=== PATIENT | female | born 1960 | race Caucasian/White ===

== ENCOUNTER 2019-01-16 16:38 | Emergency (ER) | payer BC ==
[2019-01-16 18:47] LABS: Appearance,Urine Clear (Clear); Bilirubin,Urine Negative (Negative); Blood,Urine Negative (Negative); Color,Urine Yellow; Glucose,Urine (UA) Negative (Negative); Ketones,Urine 1+ (Negative); Leukocyte Esterase,Urine Negative (Negative); Nitrite,Urine Negative (Negative); Protein,Urine Negative (Negative); Specific Gravity,Urine 1.016 (1.001-1.035); Urobilinogen,Urine <2.0 mg/dL (<2.0)
[2019-01-16 18:55] LABS: ALT 30 U/L (9-52); AST 30 U/L (14-36); Albumin 5.1 g/dL (3.5-5.0); Alkaline Phosphatase 64 U/L (38-126); Anion Gap 12 mmol/L; Blood Urea Nitrogen 15 mg/dL (7-17); Carbon Dioxide 24 mmol/L (22-30); Chloride 104 mmol/L (98-107); Glucose 99 mg/dL (74-99); Lipase 292 U/L (23-300); Magnesium 2.1 mg/dL (1.6-2.3); Potassium 3.6 mmol/L (3.5-5.1); Sodium 140 mmol/L (137-145); Total Bilirubin 1.8 mg/dL (0.2-1.3); Total Protein 8.3 g/dL (6.3-8.2)
--- NOTE | 2019-01-16 19:21 | CT ---
EXAMINATION TYPE: CT angio thor/abd pel aorta DATE OF EXAM: 01/16/2019 COMPARISON: None HISTORY: Lower chest pain, Hx of aneurysm CT DLP: 820.2 mGycm. Automated Exposure Control for Dose Reduction was Utilized. CONTRAST: CT scan of the thorax, abdomen and pelvis is performed with IV Contrast, patient injected with 100 mL of Isovue 370. FINDINGS: There are 3-D post processed images. The lungs are clear of infiltrate. Heart size is normal. There is no pericardial effusion. There is n o mediastinal adenopathy. There are no hilar masses. Liver spleen pancreas gallbladder appear normal. Bile ducts are not dilated. Kidneys appear normal. There is no hydronephrosis. There is no retroperi toneal adenopathy. Thoracic aorta appears normal. There is no evidence of thoracic aortic dissection. Ascending aorta me asures 3.3 cm. There is normal contrast opacification of the pulmonary arteries. Abdominal aorta has normal size. There is patency of the celiac artery and superior mesenteric artery . There is bilateral patency of the renal arteries. There is patency of the iliac and femoral arterie s bilaterally. There is no evidence of hemodynamic stenosis. There is no evidence of aneurysm or diss ection. The thoracic and lumbar spine appear intact. There is a mild L4-5 subluxation. IMPRESSION: Negative CT angiogram of the chest abdomen pelvis. No evidence of pulmonary embolism. No evidence of aortic aneurysm or dissection.
[2019-01-16 19:22] LABS: Basophils # (A) 0.1 k/uL (0-0.2); Basophils % (A) 1 %; Eosinophils # (A) 0.1 k/uL (0-0.7); Eosinophils % (A) 2 %; HCT 42.5 % (34.0-46.0); Lymphocytes # (A) 3.1 k/uL (1.0-4.8); Lymphocytes % (A) 49 %; MCH 30.4 pg (25.0-35.0); Mean Platelet Volume 6.6; Monocytes # (A) 0.4 k/uL (0-1.0); Monocytes % (A) 6 %; Neutrophils # (A) 2.6 k/uL (1.3-7.7); Neutrophils % (A) 41 %; Platelet Count 262 k/uL (150-450); RBC 4.62 m/uL (3.80-5.40); RDW 12.3 % (11.5-15.5); WBC 6.4 k/uL (3.8-10.6)
--- NOTE | 2019-01-16 19:31 | XR ---
EXAMINATION TYPE: XR chest 2V DATE OF EXAM: 01/16/2019 COMPARISON: NONE HISTORY: Epigastric pain TECHNIQUE: Frontal and lateral views of the chest are obtained. FINDINGS: Heart and mediastinum are normal. Lungs are clear. Diaphragm is normal. Bony thorax appear s normal. IMPRESSION: Normal chest. No change.
[2019-01-16] MEDS ORDERED: MAG HYDROX/AL HYDROX/SIMETH 30 ML, HYOSCYAMINE ELIXIR 10 ML, CIMETIDINE HCL 300 MG, LID... PO STA ×4 (20:16)
--- NOTE | 2019-01-16 21:01 | US ---
EXAMINATION TYPE: US abdomen limited DATE OF EXAM: 01/16/2019 COMPARISON: CT CLINICAL HISTORY: RUQ/epigastric pain. Pt states epigastric pain EXAM MEASUREMENTS: Liver Length: 12.9 cm Gallbladder Wall: 0.2 cm CBD: 0.3 cm Right Kidney: 9.6 x 3.7 x 4.8 cm Pancreas: wnl Liver: wnl Gallbladder: wnl Evidence for sonographic Burgess's sign: No CBD: wnl Right Kidney: wnl No abnormality visualized to account for pt's symptoms IMPRESSION: No gallstones or dilated ducts. Negative exam.
--- NOTE | 2019-01-16 21:33 | ED ---
Abdominal Pain HPI - General Chief Complaint: Abdominal Pain Stated Complaint: abdominal pain/swelling Time Seen by Provider: 01/16/19 18:19 Source: patient Mode of arrival: ambulatory Limitations: no limitations - History of Present Illness Initial Comments: 58-year-old female presenting today for chief complaint of epigastric pain 2 weeks. Patient has history of "problem with aorta" monitored with Dr. Marshall. Pt denies history of IA. Patient states that she has had epigastric pain that radiates to her back for the past 2 weeks. She has an appointment scheduled in 2 weeks with gastroenterology. Patient states when the pain persisted the past 2 days increasing severity she presents emergency department for evaluation. She states she feels like she has ingestion, she ascribes the pain is sharp and increases with certain positions. Patient states she does not have chest pain, dyspnea distracted exertion nausea vomiting jaw pain shoulder pain or UE parathesias. She denies fever or diarrhea constipation no abdominal pain melena or hematochezia. Patient denies any vomiting or hematemesis. Remaining review of systems negative upon arrival patient appears well no signs of acute distress. No protective postures vital signs within acceptable limits. - Related Data Previous Rx's Medication Instructions Recorded Famotidine [Pepcid] 20 mg PO DAILY 30 Days #30 tablet 01/16/19 Allergies Allergy/AdvReac Type Severity Reaction Status Date / Time No Known Allergies Allergy Verified 01/16/19 20:13 Review of Systems ROS Statement: Those systems with pertinent positive or pertinent negative responses have been documented in the HPI. ROS Other: All systems not noted in ROS Statement are negative. Past Medical History Past Medical History: Chest Pain / Angina History of Any Multi-Drug Resistant Organisms: None Reported Past Surgical History: Section Past Psychological History: No Psychological Hx Reported Smoking Status: Never smoker Past Alcohol Use History: Occasional Past Drug Use History: None Reported General Exam - General Exam Comments Initial Comments: General: The patient is awake and alert, in no distress, and does not appear acutely ill. Eye: +3 mm pupils are equal, round and reactive to light, extra-ocular movements are intact. No nystagmus. There is normal conjunctiva bilaterally. No signs of icterus. Ears, nose, mouth and throat: There are moist mucous membranes and no oral lesions. Neck: The neck is supple, there is no tenderness or JVD. Cardiovascular: There is a regular rate and rhythm. No murmur, rub or gallop is appreciated. Respiratory: Lungs are clear to auscultation, respirations are non-labored, breath sounds are equal. No wheezes, stridor, rales, or rhonchi. Gastrointestinal: Soft, non-distended, tender abdomen to palpation of the epigastric region, without masses or organomegaly noted. There is no rebound or guarding present. No CVA tenderness. Bowel sounds are unremarkable. Musculoskeletal: Normal ROM, no tenderness. Strength 5/5. Sensation intact. Radial and DP pulses equal bilaterally 2+. Neurological: A&O x 3. CN II-XII intact, There are no obvious motor or sensory deficits. Coordination appears grossly intact. Speech is normal. Skin: Skin is warm and dry and no rashes or lesions are noted. No LE edema Psychiatric: Cooperative, appropriate mood & affect, normal judgment. Limitations: no limitations Course Vital Signs 01/16/19 01/16/19 01/16/19 16:50 19:00 22:58 Temperature 98.2 F 97.8 F Pulse Rate 52 L 100 86 Respiratory 20 17 18 Rate Blood Pressure 151/84 149/88 140/81 O2 Sat by Pulse 99 100 99 Oximetry Medical Decision Making - Medical Decision Making 58-year-old female presenting for epigastric pain 2 weeks. Patient states she has feeling of indigestion. Patient denies any increase with exertion. She denies any chest pain shortness of breath. She denies any nausea. She denies any radiation of the pain to the shoulders or jaw. Patient states that it feels almost positional, worsening with bending of the abdomen. In the epigastric region. Patient denies any specific pattern with food. Patient denies any di arrhea or constipation. Examination revealed epigastric tenderness. No rigidity no guarding. Patient did state she had an abnormality of her aorta, this was very concerning considering the radiation to the back. CT angiography was obtained immediately, patient denied history of renal disease. This revealed no acute abdomen so pulmonary embolism no aneurysms or dissection. No pneumoperitoneum or any other after malleus of the abdomen or pelvis were noted. Ultrasound of the right upper quadrant epigastric region was obtained revealing no acute abnormalities. Lipase within normal limits. Remaining laboratory studies unremarkable. Serial troponin negative x2. EKG revealed nonspecific ST segments. Althought patient pain appeared very atypical with symptoms ongoing > 2weeks with no specficis pattern given patient age I did suggest admission for cardiology and GI evaluation, pt refused. Pt did have relief with GI cocktail of pain ddx includes peptic ulcer, pt admits to increased stressors in life, use of NSAIDs and ETOH use. I discussed importance of outpatient primary f/u, stress testing and GI evaluation. I discussed case at length and in detail with attending provider Dr. Barrios who is agreeable with care plan and patients discharge today. - Lab Data Result diagrams: 01/16/19 18:37 01/16/19 18:37 Lab Results 01/16/19 01/16/19 01/16/19 Range/Units 18:37 18:37 18:37 WBC 6.4 (3.8-10.6) k/uL RBC 4.62 (3.80-5.40) m/uL Hgb 14.0 (11.4-16.0) gm/dL Hct 42.5 (34.0-46.0) % MCV 92.0 (80.0-100.0) fL MCH 30.4 (25.0-35.0) pg MCHC 33.0 (31.0-37.0) g/dL RDW 12.3 (11.5-15.5) % Plt Count 262 (150-450) k/uL Neutrophils % 41 % Lymphocytes % 49 % Monocytes % 6 % Eosinophils % 2 % Basophils % 1 % Neutrophils # 2.6 (1.3-7.7) k/uL Lymphocytes # 3.1 (1.0-4.8) k/uL Monocytes # 0.4 (0-1.0) k/uL Eosinophils # 0.1 (0-0.7) k/uL Basophils # 0.1 (0-0.2) k/uL Sodium 140 (137-145) mmol/L Potassium 3.6 (3.5-5.1) mmol/L Chloride 104 (98-107) mmol/L Carbon Dioxide 24 (22-30) mmol/L Anion Gap 12 mmol/L BUN 15 (7-17) mg/dL Creatinine 0.82 (0.52-1.04) mg/dL Est GFR (CKD-EPI)AfAm >90 (>60 ml/min/1.73 sqM) Est GFR (CKD-EPI)NonAf 79 (>60 ml/min/1.73 sqM) Glucose 99 (74-99) mg/dL Calcium 10.0 (8.4-10.2) mg/dL Magnesium 2.1 (1.6-2.3) mg/dL Total Bilirubin 1.8 H (0.2-1.3) mg/dL AST 30 (14-36) U/L ALT 30 (9-52) U/L Alkaline Phosphatase 64 (38-126) U/L Troponin I <0.012 (0.000-0.034) ng/mL Total Protein 8.3 H (6.3-8.2) g/dL Albumin 5.1 H (3.5-5.0) g/dL Lipase 292 (23-300) U/L Urine Color Urine Appearance (Clear) Urine pH (5.0-8.0) Ur Specific [place] (1.001-1.035) Urine Protein (Negative) Urine Glucose (UA) (Negative) Urine Ketones (Negative) Urine Blood (Negative) Urine Nitrite (Negative) Urine Bilirubin (Negative) Urine Urobilinogen (<2.0) mg/dL Ur Leukocyte Esterase (Negative) 01/16/19 01/16/19 Range/Units 18:37 21:47 WBC (3.8-10.6) k/uL RBC (3.80-5.40) m/uL Hgb (11.4-16.0) gm/dL Hct (34.0-46.0) % MCV (80.0-100.0) fL MCH (25.0-35.0) pg MCHC (31.0-37.0) g/dL RDW (11.5-15.5) % Plt Count (150-450) k/uL Neutrophils % % Lymphocytes % % Monocytes % % Eosinophils % % Basophils % % Neutrophils # (1.3-7.7) k/uL Lymphocytes # (1.0-4.8) k/uL Monocytes # (0-1.0) k/uL Eosinophils # (0-0.7) k/uL Basophils # (0-0.2) k/uL Sodium (137-145) mmol/L Potassium (3.5-5.1) mmol/L Chloride (98-107) mmol/L Carbon Dioxide (22-30) mmol/L Anion Gap mmol/L BUN (7-17) mg/dL Creatinine (0.52-1.04) mg/dL Est GFR (CKD-EPI)AfAm (>60 ml/min/1.73 sqM) Est GFR (CKD-EPI)NonAf (>60 ml/min/1.73 sqM) Glucose (74-99) mg/dL Calcium (8.4-10.2) mg/dL Magnesium (1.6-2.3) mg/dL Total Bilirubin (0.2-1.3) mg/dL AST (14-36) U/L ALT (9-52) U/L Alkaline Phosphatase (38-126) U/L Troponin I <0.012 (0.000-0.034) ng/mL Total Protein (6.3-8.2) g/dL Albumin (3.5-5.0) g/dL Lipase (23-300) U/L Urine Color Yellow Urine Appearance Clear (Clear) Urine pH 5.0 (5.0-8.0) Ur Specific [place] 1.016 (1.001-1.035) Urine Protein Negative (Negative) Urine Glucose (UA) Negative (Negative) Urine Ketones 1+ H (Negative) Urine Blood Negative (Negative) Urine Nitrite Negative (Negative) Urine Bilirubin Negative (Negative) Urine Urobilinogen <2.0 (<2.0) mg/dL Ur Leukocyte Esterase Negative (Negative) - EKG Data EKG Comments: Ventricular rate 97 bpm, NJ interval 152 ms, QR mu-ism 70 ms, QT/QTC 374/474 ms. Sinus rhythm with premature atrial complexes. Nonspecific ST and T wave abnormality noted. No previous EKG for comparison. EKG was reviewed by attending provider Dr. Barrios. Disposition Clinical Impression: Abdominal pain Disposition: HOME SELF-CARE Condition: Good Instructions (If sedation given, give patient instructions): Abdominal Pain (ED) Additional Instructions: Please use medication as discussed. Please follow-up with family doctor in the next 2 days. These follow-up with gastroenterology as discussed. Please return to emergency room if the symptoms increase or worsen or for any other concerns. Prescriptions: Famotidine [Pepcid] 20 mg PO DAILY 30 Days #30 tablet Is patient prescribed a controlled substance at d/c from ED?: No Referrals: None,Stated [Primary Care Provider] - 1-2 days [facility] [NON-STAFF] - 1-2 days Time of Disposition: 22:42
[2019-01-16 22:59] VITALS: BP 140/81; PULSE 86; RESP 18; TEMP 97.8
== END 2019-01-16 23:08 | disposition home or self-care (01) ==
LOC: EC 16:38
DX: R10.13 Epigastric pain (principal)
CPT/HCPCS: 36415; 93005; 80053; 83690; 83735; 84484; 85025; 81003; 71046; 76705; 71275; 74174; 99284; Q9967

== ENCOUNTER 2019-01-18 09:17 | Emergency (ER) | payer BC ==
[2019-01-18 09:21] VITALS: RESP 16; TEMP 97.5
[2019-01-18] MEDS ORDERED: ONDANSETRON 4 MG/2 ML VIAL IVP STA (09:37)
[2019-01-18] MEDS ORDERED: SODIUM CHLORIDE 0.9% 1,000 ML IV STA ×2 (09:37)
[2019-01-18] MEDS ORDERED: HYDROcodone/APAP 5-325MG 1 EACH TAB PO STA (10:04)
[2019-01-18] MEDS ORDERED: KETOROLAC 30 MG/ML 1 ML VIAL IM STA (10:04)
--- NOTE | 2019-01-18 10:27 | XR ---
EXAMINATION TYPE: XR lumbar spine 2 or 3V, XR thoracic spine 2V , 6 VIEWS DATE OF EXAM ORDERED: 01/18/2019 HISTORY: Back pain. COMPARISON: None. FINDINGS: Vertebral body height and alignment are maintained. The upper thoracic region is not well seen in the lateral projection. There is hypertrophic spondylosis in the mid dorsal spine. Paraspinal soft tissues are normal. The pedicles are intact. No spondylolysis is seen. There is a grade 1 spond ylolisthesis of L4 on L5. IMPRESSION: 1. NO ACUTE OSSEOUS LESION. 2. MILD DEGENERATIVE CHANGE.
--- NOTE | 2019-01-18 10:29 | ED ---
Abdominal Pain HPI - General Chief Complaint: Abdominal Pain Stated Complaint: Abd pain Time Seen by Provider: 01/18/19 09:23 Source: patient, RN notes reviewed, old records reviewed Mode of arrival: ambulatory Limitations: no limitations - History of Present Illness Initial Comments: Patient is a 58-year-old female who presents for his pharmacy for evaluation for intermittent abdominal pain for the past few weeks. Patient states it seems like with certain movements of her back she'll have a shooting pain that wraps around her back towards front of her abdomen and clenches up. 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 Patient was evaluated in ED approximately 2 days ago with full workup including abdominal ultrasound and cardiac workup and thoracic aorta CT. Is rough and 1-year-old lady negative. Patient states she's had no nausea or vomiting. Patient states that she's also had some tingling and numbness on the middle of her left thigh. - Related Data Previous Rx's Medication Instructions Recorded Famotidine [Pepcid] 20 mg PO DAILY 30 Days #30 tablet 01/16/19 Cyclobenzaprine [Flexeril] 10 mg PO TID #12 tab 01/18/19 Dexamethasone 0.75 mg PO DAILY #12 tab 01/18/19 HYDROcodone/APAP 5-325MG [[place] 1 tab PO Q6HR PRN #10 tab 01/18/19 5-325] Ibuprofen [Motrin] 600 mg PO Q6HR PRN #20 tab 01/18/19 Allergies Allergy/AdvReac Type Severity Reaction Status Date / Time No Known Allergies Allergy Verified 01/18/19 10:13 Review of Systems ROS Statement: Those systems with pertinent positive or pertinent negative responses have been documented in the HPI. ROS Other: All systems not noted in ROS Statement are negative. Past Medical History Past Medical History: Chest Pain / Angina History of Any Multi-Drug Resistant Organisms: None Reported Past Surgical History: Section Past Psychological History: No Psychological Hx Reported Smoking Status: Never smoker Past Alcohol Use History: Occasional Past Drug Use History: None Reported General Exam - General Exam Comments Initial Comments: Is a 58-year-old female. Alert and oriented 3. No significant distress. Limitations: no limitations Head exam: Present: atraumatic, normocephalic, normal inspection Eye exam: Present: normal appearance, PERRL, EOMI. Absent: scleral icterus, conjunctival injection, periorbital swelling ENT exam: Present: normal exam, mucous membranes moist Neck exam: Present: normal inspection. Absent: tenderness, meningismus, lymphadenopathy Respiratory exam: Present: normal lung sounds bilaterally. Absent: respiratory distress, wheezes, rales, rhonchi, stridor Cardiovascular Exam: Present: regular rate, normal rhythm, normal heart sounds. Absent: systolic murmur, diastolic murmur, rubs, gallop, clicks GI/Abdominal exam: Present: soft, normal bowel sounds. Absent: distended, tenderness, guarding, rebound, rigid Extremities exam: Present: normal inspection, full ROM, normal capillary refill. Absent: tenderness, pedal edema, joint swelling, calf tenderness Back exam: Present: normal inspection Neurological exam: Present: alert, oriented X3, CN II-XII intact Psychiatric exam: Present: normal affect, normal mood Skin exam: Present: warm, dry, intact, normal color. Absent: rash Course Vital Signs 01/18/19 09:18 Temperature 97.5 F L Pulse Rate 93 Respiratory 16 Rate Blood Pressure 155/94 O2 Sat by Pulse 100 Oximetry Medical Decision Making - Medical Decision Making 58-year-old female presents for short stay with some shooting pain with certain movements from her back around her abdomen. Patient was offered further evaluation including blood work and states that she had the sudden completed 2 days ago does not want repeated again today. Patient states it seems like it's more related to her back with certain movements will cause spasming in her muscles. Patient has no significant spinal tenderness. She does report shooting pain with movement. She denies any saddle anesthesias. Patient was given by mouth [place] IM Toradol. Patient's lumbar spine and thoracic spine x- rays show evidence of degenerative disease but no acute process. Patient informed of this. Discussed patient's pain seems likely related to congestive back sensitive to movement. She had a CT angiogram her thoracic, OF HER ABD OMEN, 2 TROPONINS AND BLOOD WORK WHICH WAS ALL NORMAL 2 DAYS AGO. PATIENT does have appt with [facility] FOR FOLLOW-UP FROM HER LAST ER PLAN. I DISCUSSED THAT SHE SHOULD CONTINUE THIS. DISCUSSED THAT WE'LL PUT THE PATIENT AT THIS TIME AND STATES THAT HER MEDICINE SHORT COURSE OF PAIN MEDICINE AND MUSCLE RELAXERS. DISCUSSED RETURN PARAMETERS. ALL QUESTIONS ANSWERED. 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 - Radiology Data Radiology results: report reviewed No acute osseous lesions noted of the spine. Mild degenerative changes. Disposition Clinical Impression: Spasm of back muscles, DDD (degenerative disc disease) Disposition: HOME SELF-CARE Condition: Good Instructions (If sedation given, give patient instructions): Muscle Spasm (ED), Degenerative Disc Disease (ED) Additional Instructions: Follow-up with primary care physician. Patient should return to the emergency department if any alarming signs or symptoms occur. Take medication as prescribed. Prescriptions: Dexamethasone 0.75 mg PO DAILY #12 tab Cyclobenzaprine [Flexeril] 10 mg PO TID #12 tab Ibuprofen [Motrin] 600 mg PO Q6HR PRN #20 tab PRN Reason: Pain HYDROcodone/APAP 5-325MG [[place] 5-325] 1 tab PO Q6HR PRN #10 tab PRN Reason: Pain Is patient prescribed a controlled substance at d/c from ED?: Yes If prescribed controlled substance>3 days was MAPS reviewed?: Prescribed <3 Days If opioid is for acute pain is fill amount 7 days or less?: Yes If Rx opioid, was Start Talking consent form obtained?: Yes Referrals: None,Stated [Primary Care Provider] - 1-2 days Faina Mcallister MD [STAFF PHYSICIAN] - 1-2 days Brett Cat DO [Doctor of Osteopathic Medicine] - 1-2 days Time of Disposition: 11:12
[2019-01-18 11:29] VITALS: BP 143/88; PULSE 84
== END 2019-01-18 11:29 | disposition home or self-care (01) ==
LOC: EC 09:17
DX: M51.36 Other intervertebral disc degeneration, lumbar region (principal); M47.816 Spondylosis without myelopathy or radiculopathy, lumbar region; M47.814 Spondylosis without myelopathy or radiculopathy, thoracic region; R10.9 Unspecified abdominal pain
CPT/HCPCS: 72070; 72100; 99284; 96372; J1885

== ENCOUNTER → 2019-02-12 | Outpatient (CLI) | payer BC ==
--- NOTE | 2019-02-13 09:00 | MM ---
Reason for exam: screening (asymptomatic). Last mammogram was performed 10 years and 8 months ago. History: Patient is postmenopausal. Family history of breast cancer in aunt. Took hormonal contraceptives for 1 year. Physical Findings: A clinical breast exam by your physician is recommended on an annual basis and results should be correlated with mammographic findings. MG 3D Screening Mammo W/Cad Bilateral CC and MLO view(s) were taken. Prior study comparison: June 03, 2008, right breast mammogram dig work up. May 28, 2008, bilateral digital screening mammogram. The breast tissue is heterogeneously dense. This may lower the sensitivity of mammography. There is no discrete abnormality. No significant changes when compared with prior studies. ASSESSMENT: Negative, BI-RAD 1 RECOMMENDATION: Routine screening mammogram of both breasts in 1 year.
== END | disposition home or self-care (01) ==
LOC: RADMAMWWP 07:40
PROVIDERS: ATTEND Internal Medicine
DX: Z12.31 Encounter for screening mammogram for malignant neoplasm of breast (principal)
CPT/HCPCS: 77063; 77067

== ENCOUNTER → 2019-03-27 | Outpatient (CLI) | payer BC ==
[2019-03-27 15:31] LABS: LDL Cholesterol,Calculated 165.2 mg/dL (0.0-131.0); VLDL Calculation 16.8 mg/dL (5.00-40.00)
== END | disposition home or self-care (01) ==
LOC: LABWHC1 08:05
PROVIDERS: ATTEND Internal Medicine Interventional Cardiology
DX: E78.2 Mixed hyperlipidemia (principal)
CPT/HCPCS: 36415; 80061; 84450; 84460

== ENCOUNTER → 2019-05-23 | Outpatient (CLI) | payer BC ==
[2019-05-23 10:34] LABS: HCT 42.6 % (34.0-46.0); HGB 14.1 gm/dL (11.4-16.0); MCH 30.9 pg (25.0-35.0); MCHC 33.1 g/dL (31.0-37.0); MCV 93.5 fL (80.0-100.0); Mean Platelet Volume 6.9; Platelet Count 210 k/uL (150-450); RBC 4.55 m/uL (3.80-5.40); RDW 13.7 % (11.5-15.5); WBC 6.1 k/uL (3.8-10.6)
[2019-05-23 16:55] LABS: African American GFR (CKD) 93.5 (60.0-200.0)
== END | disposition home or self-care (01) ==
LOC: LABWHC1 09:44
PROVIDERS: ATTEND Internal Medicine Interventional Cardiology
DX: Z01.812 Encounter for preprocedural laboratory examination (principal); R94.39 Abnormal result of other cardiovascular function study
CPT/HCPCS: 36415; 82565; 83735; 84520; 85027

== ENCOUNTER 2019-06-05 09:01 | Day surgery (SDC) | payer BC ==
[2019-06-01 13:57] VITALS: BMI 23.4
[~2019-06-05 09:01] MED LIST: ALPRAZolam 0.25 MG TAB PO PRN; ALPRAZolam 0.5 MG TAB PO PRN; ASPIRIN 325 MG TAB PO STA; ATORVASTATIN 80 MG TAB PO STA; NITROGLYCERIN SL TABS 0.4 MG TAB SUBLINGUAL PRN; SODIUM CHLORIDE 0.9% 1,000 ML in EMPTY BAG 1 BAG IV ONE
[2019-06-05] MEDS ORDERED: ALPRAZolam 0.5 MG TAB PO ONE (09:18)
[2019-06-05 09:44] VITALS: TEMP 98
[2019-06-05 09:47] LABS: Calcium 9.5 mg/dL (8.4-10.2); Potassium 3.9 mmol/L (3.5-5.1)
[2019-06-05] MEDS ORDERED: VERAPAMIL 2.5 MG/ML 2 ML AMP ONE (10:06)
[2019-06-05] MEDS ORDERED: LIDOCAINE 1% INJ 10MG/ML (20 ML MDV) ONE (10:06)
[2019-06-05] MEDS ORDERED: MIDAZOLAM (PF) 2 MG/2 ML VIAL IVP ONE (10:35)
[2019-06-05] MEDS ORDERED: LIDOCAINE 1% INJ 10MG/ML (20 ML MDV) SQ ONE (10:35)
[2019-06-05] MEDS ORDERED: HEPARIN SODIUM 1,000 UN/ML (10ML VL) ONE (10:36)
[2019-06-05] MEDS ORDERED: VERAPAMIL SYRINGE (5 MG/10 ML) INTRAARTER ONE ×2 (10:37→10:47)
[2019-06-05] MEDS ORDERED: HEPARIN SODIUM 1,000 UN/ML (10ML VL) IV ONE (10:40)
[2019-06-05] MEDS ORDERED: HYDROmorphone 1 MG/ML 1 ML SYRINGE ONE (10:40)
[2019-06-05] MEDS ORDERED: HYDROmorphone 1 MG/ML 1 ML SYRINGE IVP ONE (10:42)
[2019-06-05] MEDS ORDERED: IOPAMIDOL-370 150ML BTL INJ ONE (10:47)
[2019-06-05] MEDS ORDERED: RX INFO: IV CONTRAST WAS GIVEN 1 EACH MISC MISCELLANE PRN (10:51)
--- NOTE | 2019-06-05 10:55 | P.PCN ---
Date of Procedure: 06/05/19 Operative Findings: CARDIAC CATHETERIZATION PERFORMING PHYSICIAN: Jeff Serrato MD, RPVI PROCEDURE PERFORMED: 1. Selective right and left coronary angiogram 2. Left heart catheterization INDICATION: This is a pleasant 58-year-old female patient who was experiencing chest discomfort and underwent a stress test came in to be abnormal. Because of that a heart catheterization was advised. The patient does have hypertension as well as dyslipidemia. COMPLICATION: None APPROACH: Right radial artery LEVEL OF SEDATION: Moderate with a summation length of 14 minutes PROCEDURE DESCRIPTION: After obtaining an informed consent, the patient was brought to cardiac logging rafter laborer. Local anesthesia was performed using lidocaine subcutaneously. The right radial artery was cannulated using Seldinger technique, the guidewire passed easily, following that we advanced a 5-[place]og[place] sheath dilator assembly, the wire and dilator were removed and sheath was flushed. Following that, 2 mg of verapamil along with 5000 unit heparin were given. Selective right and left coronary angiogram using a 6-[place] JR4 and JL 3.5 catheters. Following that we did left heart catheterization using 6-Togol[place] pigtail catheter. The procedure was completed there was no complication. SELECTIVE CORONARY ANGIOGRAM: The right coronary artery: Is a moderate caliber vessel and a dominant vessel and appears to be angiographically normal. Bifurcates distally into a PDA and PLV branches and both appeared to be angiographically normal. Left main: It is angiographically normal. The left circumflex: It is a moderate caliber vessel and nondominant vessel and appears to be angiographically normal. Gives rises into 2 obtuse marginal branches and both appeared to be angiographically normal. The left anterior descending artery: It is angiographically normal. In the midportion gives rises into a large diagonal branch which seems to be angiographically normal. HEMODYNAMICS: The LVEDP is 12 mmHg without significant gradient across aortic valve CONCLUSION: Normal coronary angiogram Normal left ventricular end-diastolic pressure POSTPROCEDURE MANAGEMENT: Medical treatment Follow-up with the patient
[2019-06-05] MEDS ORDERED: SODIUM CHLORIDE 0.9% 1,000 ML IV SCH (11:00)
[2019-06-05 13:42] VITALS: RESP 18
[2019-06-05 13:46] VITALS: BP 111/61; PULSE 56
== END 2019-06-05 15:50 | disposition home or self-care (01) ==
LOC: CATHCVL 09:01
PROVIDERS: ATTEND Internal Medicine Interventional Cardiology
DX: I20.0 Unstable angina (principal); R94.39 Abnormal result of other cardiovascular function study; R07.81 Pleurodynia; I08.3 Combined rheumatic disorders of mitral, aortic and tricuspid valves; R00.0 Tachycardia, unspecified; I10 Essential (primary) hypertension; E78.5 Hyperlipidemia, unspecified; F10.10 Alcohol abuse, uncomplicated; Z79.899 Other long term (current) drug therapy; Z79.82 Long term (current) use of aspirin
CPT/HCPCS: 93458; 80048; C1769; C1894; J2001; J1644; J1170; J2250; Q9967

== ENCOUNTER → 2020-04-08 | Outpatient (CLI) | payer BC ==
[2020-04-08 11:12] LABS: Chol/HDL Ratio 2.74; LDL Cholesterol,Calculated 80.2 mg/dL (0.0-131.0); VLDL Calculation 20.8 mg/dL (5.00-40.00)
== END | disposition home or self-care (01) ==
LOC: LABWHC1 07:21
PROVIDERS: ATTEND Internal Medicine Interventional Cardiology
DX: E78.2 Mixed hyperlipidemia (principal)
CPT/HCPCS: 36415; 80061; 84450; 84460

== ENCOUNTER → 2021-09-19 | Outpatient (CLI) | payer BC ==
[2021-09-19 10:44] LABS: HCT 42.6 % (37.2-46.3); HGB 13.6 g/dL (12.0-15.0); MCH 31.1 pg (27.0-32.0); MCHC 31.9 g/dL (32.0-37.0); MCV 97.5 fL (80.0-97.0); Mean Platelet Volume 9.4 fL (9.5-12.2); Platelet Count 213 X 10*3/uL (140-440); RBC 4.37 X 10*6/uL (4.10-5.20); RDW 12.3 % (11.5-14.5); WBC 3.97 X 10*3/uL (4.50-10.00)
[2021-09-19 13:01] LABS: ALT 34 U/L (8-44); AST 36 U/L (13-35); African American GFR (CKD) 89.9 (60.0-200.0); Albumin 4.4 g/dL (3.8-4.9); Albumin/Globulin Ratio 2.12 (1.60-3.17); Alkaline Phosphatase 58 U/L (41-126); BUN/Creat Ratio 19.58 Ratio (12.00-20.00); Calcium 9.1 mg/dL (8.7-10.3); Carbon Dioxide 24.1 mmol/L (20.0-27.5); Chloride 106 mmol/L (96-109); Chol/HDL Ratio 3.44 Ratio; Globulin 2.1 g/dL (1.6-3.3); Glucose 107 mg/dL (70-110); LDL Cholesterol,Calculated 126.7 mg/dL (0.0-131.0); Magnesium 2.2 mg/dL (1.5-2.4); Non-African American GFR(CKD) 77.6 (60.0-200.0); Potassium 4.4 mmol/L (3.5-5.5); Sodium 143 mmol/L (135-145); Total Protein 6.5 g/dL (6.2-8.2)
== END | disposition home or self-care (01) ==
LOC: LABWHC1 07:22
PROVIDERS: ATTEND Nurse Practitioner Adult Health
DX: I10 Essential (primary) hypertension (principal); E78.5 Hyperlipidemia, unspecified; R00.2 Palpitations
CPT/HCPCS: 36415; 80053; 80061; 83735; 84443; 85027

== ENCOUNTER → 2023-04-26 | Outpatient (CLI) | payer BC ==
[2023-04-26 16:00] LABS: ALT 33 U/L (8-44); AST 36 U/L (13-35); Chol/HDL Ratio 2.68 Ratio; LDL Cholesterol,Calculated 94.5 mg/dL (0.0-131.0)
== END | disposition home or self-care (01) ==
LOC: LABWHC1 09:29
PROVIDERS: ATTEND Internal Medicine Interventional Cardiology
DX: E78.00 Pure hypercholesterolemia, unspecified (principal)
CPT/HCPCS: 36415; 80061; 84450; 84460